=== PATIENT | female | born 1960 | race Caucasian/White ===

== ENCOUNTER 2017-05-15 09:23 | Emergency (ER) | payer OTHER ==
[~2017-05-15] VITALS: Ht 162.6 cm; Wt 80.0 kg
[~2017-05-15 09:23] MED LIST: ADLT ASA LOW81 MG PO; AUGMENTIN875TAB PO; BACLOFEN10 MG PO; CHANTIX1 MG OR; CHOLESTEROL MED PO; DEPO-MEDROL80 MG/ML IM; KETOROLAC60 MG/2 ML IJ; LEVAQUIN750 MG PO; LISINOP/HCTZ1 TAB PO; LOVASTATIN40 M1 PO; METOPROL TAR25 MG PO; METOPROL TAR50 MG PO; MUCINEX600 MG PO; MULTI VITAMN; NAPROSYN500 MG PO; PATANASE0.6 %; PERCOCET 5/321 COMBO PO; PLAVIX75 MG PO; PREDNISONE20 MG PO; PROTONIX40 MG PO; SOMA350 MG PO; TOPROL XL50 MG PO; TRAMADOL HCL50 MG PO; TYLENOL # 31 TA1 PO; ZOFRAN ODT4 MG PO
[2017-05-15] MEDS ORDERED: LISINOP/HCTZ1 TA1 PO (09:30)
[2017-05-15] MEDS ORDERED: SYNTHROID75 MCG PO (09:31)
[2017-05-15] MEDS ORDERED: PERCOCET 5/325M1 TAB PO (10:59)
[2017-05-15 11:03] VITALS: BP 150/87
== END 2017-05-15 11:15 | disposition home or self-care (01) | DRG 552 ==
LOC: ED 09:23
DX: S16.1XXA Strain of muscle, fascia and tendon at neck level, initial encounter (principal); S09.90XA Unspecified injury of head, initial encounter; K21.9 Gastro-esophageal reflux disease without esophagitis; E78.00 Pure hypercholesterolemia, unspecified; I10 Essential (primary) hypertension; G47.30 Sleep apnea, unspecified; V49.40XA Driver injured in collision with unspecified motor vehicles in traffic accident, initial encounter

== ENCOUNTER 2018-09-04 09:41 | Emergency (ER) | payer OTHER ==
[~2018-09-04] VITALS: Ht 162.6 cm; Wt 88.6 kg
[~2018-09-04 09:41] MED LIST changes: +LISINOP/HCTZ1 TA1 PO; +PERCOCET 5/325M1 TAB PO; +SYNTHROID75 MCG PO
[2018-09-04] MEDS ORDERED: MEDDOSEPAK PO (10:13)
[2018-09-04] MEDS ORDERED: TORADOL PO (10:13)
[2018-09-04 10:43] VITALS: BP 124/63
== END 2018-09-04 11:00 | disposition home or self-care (01) | DRG 93 ==
LOC: ED 09:41
DX: G89.29 Other chronic pain (principal); M54.5 Low back pain; I10 Essential (primary) hypertension

== ENCOUNTER 2019-03-31 16:51 | Emergency (ER) | payer OTHER ==
[~2019-03-31] VITALS: Ht 162.6 cm; Wt 70.0 kg
[~2019-03-31 16:51] MED LIST changes: +MEDDOSEPAK PO; +TORADOL PO
[2019-03-31 17:41] VITALS: BP 140/62
== END 2019-03-31 17:41 | disposition home or self-care (01) | DRG 605 ==
LOC: ED 16:51
DX: S61.213A Laceration without foreign body of left middle finger without damage to nail, initial encounter (principal); I10 Essential (primary) hypertension; W26.0XXA Contact with knife, initial encounter; Y93.G3 Activity, cooking and baking; Y92.000 Kitchen of unspecified non-institutional (private) residence as the place of occurrence of the external cause; Z79.01 Long term (current) use of anticoagulants; Z95.5 Presence of coronary angioplasty implant and graft

== ENCOUNTER 2019-11-12 09:20 | Observation (INO) | payer OTHER ==
[~2019-11-12] VITALS: Ht 162.6 cm; Wt 85.0 kg
[2019-11-12 09:53] LABS: IMMATURE GRANULOCYTES 0.5 % (0.0-5.0); MEAN CELL VOLUME 91.7 fL CALC (80.0-100.0); MEAN CORPUSCULAR HGB 32.1 pG CALC (26.0-32.0); NEUT# 4.07 thou/uL (2.00-7.15); RED BLOOD COUNT 4.36 mill/uL (4.20-5.60); RED CELL DISTRI WIDTH 12.7 % (11.5-15.5)
[2019-11-12 10:10] LABS: ALBUMIN 5.1 g/dL (3.2-5.0); ALKALINE PHOSPHATASE 92 u/l (38-126); BUN 19 mg/dL (7-17); BUN/CREATININE RATIO 25 (12-20 (CALC)); CARBON DIOXIDE 24 mmol/l (22-30); CREATININE 0.8 mg/dL (0.5-1.0); GFR > 60 ML/MIN (>=60 (CALC)); GFR FOR AFR.AMER. > 60 ML/MIN (>=60 (CALC)); LIPASE 196 u/l (23-300); SGOT/AST 40 u/l (14-36); TOTAL PROTEIN 8.3 g/dL (6.3-8.2)
[2019-11-12 10:20] LABS: ANION GAP 21 (6-22 (CALC)); BILIRUBIN, TOTAL 1.5 mg/dL (0.0-1.4); CHLORIDE 83 mmol/l (95-108); SODIUM 124 mmol/l (137-146)
[2019-11-12 11:38] LABS: URINE BILIRUBIN - DIPSTICK NEGATIVE (NEGATIVE); URINE BLOOD DIPSTICK NEGATIVE (NEGATIVE); URINE COLOR YELLOW; URINE GLUCOSE - DIPSTICK NEGATIVE (NEGATIVE); URINE KETONE NEGATIVE (NEGATIVE); URINE LEUK ESTERASE SMALL (NEGATIVE); URINE NITRITE - DIPSTICK NEGATIVE (Negative); URINE PROTEIN - DIPSTICK NEGATIVE (NEG-TRACE); URINE SPECIFIC GRAVITY <=1.005; URINE UROBILINOGEN - DIPSTICK 0.2 E.U./dL (0.2)
[2019-11-12 11:49] LABS: URINE SQUAMOUS EPITHELIAL CELL FEW EPI/hpf (0-FEW); URINE WBC 0-2 WBC/hpf (0-5)
[2019-11-12 13:23] VITALS: BP 146/76
[2019-11-12 16:00] VITALS: BP 119/60
[2019-11-12 19:10] VITALS: BP 121/71
[2019-11-12 20:37] LABS: ANION GAP 14 (6-22 (CALC)); BUN 14 mg/dL (7-17); BUN/CREATININE RATIO 19 (12-20 (CALC)); CARBON DIOXIDE 27 mmol/l (22-30); CHLORIDE 87 mmol/l (95-108); CREATININE 0.7 mg/dL (0.5-1.0); GFR > 60 ML/MIN (>=60 (CALC)); GFR FOR AFR.AMER. > 60 ML/MIN (>=60 (CALC)); POTASSIUM 3.2 mmol/l (3.5-5.1); SODIUM 124 mmol/l (137-146)
[2019-11-13 03:39] VITALS: BP 120/67
[2019-11-13 05:19] LABS: HEMATOCRIT 36.9 % (37.0-47.0); HEMOGLOBIN 12.7 g/dl (12.0-16.0); MEAN CELL VOLUME 95.1 fL CALC (80.0-100.0); MEAN CORPUSCULAR HGB 32.7 pG CALC (26.0-32.0); MEAN CORPUSCULAR HGB CONC 34.4 g/L CALC (32.0-36.0); RED BLOOD COUNT 3.88 mill/uL (4.20-5.60); RED CELL DISTRI WIDTH 12.9 % (11.5-15.5)
[2019-11-13 05:31] LABS: BUN 13 mg/dL (7-17); BUN/CREATININE RATIO 20 (12-20 (CALC)); CARBON DIOXIDE 29 mmol/l (22-30); CHLORIDE 94 mmol/l (95-108); CREATININE 0.7 mg/dL (0.5-1.0); GFR > 60 ML/MIN (>=60 (CALC)); GFR FOR AFR.AMER. > 60 ML/MIN (>=60 (CALC))
[2019-11-13 05:33] LABS: ANION GAP 13 (6-22 (CALC)); POTASSIUM 4.5 mmol/l (3.5-5.1); SODIUM 131 mmol/l (137-146)
[2019-11-13 08:07] VITALS: BP 147/87
[2019-11-13 09:24] LABS: TSH, 3RD GENERATION 5.05 uIU/mL (0.47 - 4.68)
[2019-11-13 10:40] VITALS: BP 152/90
[2019-11-13] MEDS ORDERED: AMBIEN5 MG PO (11:13)
[2019-11-13] MEDS ORDERED: LISINOPRIL20 MG PO (11:13)
== END 2019-11-13 13:35 | disposition home or self-care (01) | DRG 641 ==
LOC: ED 09:20 → ED-I 10:45 → ED 11:15 → MS2 11:16
PROVIDERS: Family Medicine; Nurse Practitioner Family; ADMIT Internal Medicine; ATTEND Internal Medicine
DX: E87.1 Hypo-osmolality and hyponatremia (principal); I49.3 Ventricular premature depolarization; I10 Essential (primary) hypertension; I25.10 Atherosclerotic heart disease of native coronary artery without angina pectoris; E78.5 Hyperlipidemia, unspecified; E03.9 Hypothyroidism, unspecified; Z87.891 Personal history of nicotine dependence; Z95.5 Presence of coronary angioplasty implant and graft
CPT/HCPCS: G0378

== ENCOUNTER 2020-08-08 07:22 | Emergency (ER) | payer OTHER ==
[~2020-08-08] VITALS: Ht 162.6 cm; Wt 86.8 kg
[~2020-08-08 07:22] MED LIST changes: +AMBIEN5 MG PO; +LISINOPRIL20 MG PO
[2020-08-08] MEDS ORDERED: NALTREXONE HYDR50 MG PO (08:17)
[2020-08-08] MEDS ORDERED: BUPROPION HYDRO75 MG PO (08:18)
[2020-08-08] MEDS ORDERED: VIGAMOX OS (08:39)
[2020-08-08 09:00] VITALS: BP 146/71
== END 2020-08-08 09:00 | disposition home or self-care (01) | DRG 125 ==
LOC: ED 07:22
DX: S05.01XA Injury of conjunctiva and corneal abrasion without foreign body, right eye, initial encounter (principal); I10 Essential (primary) hypertension; X58.XXXA Exposure to other specified factors, initial encounter; Z95.5 Presence of coronary angioplasty implant and graft; Z79.899 Other long term (current) drug therapy

== ENCOUNTER 2021-02-11 | Emergency (ER) | payer OTHER ==
[~2021-02-11] MED LIST changes: +BUPROPION HYDRO75 MG PO; +NALTREXONE HYDR50 MG PO; +VIGAMOX OS
[2021-02-11 14:52] LABS: HEMOGLOBIN 12.7 g/dl (12.0-16.0); IMMATURE GRANULOCYTES 0.5 % (0.0-5.0); MEAN CELL VOLUME 96.3 fL CALC (80.0-100.0); MEAN CORPUSCULAR HGB 31.4 pG CALC (26.0-32.0); MEAN CORPUSCULAR HGB CONC 32.6 g/dL CAL (32.0-36.0); NEUT# 3.87 thou/uL (2.00-7.15); RED BLOOD COUNT 4.05 mill/uL (4.20-5.60); RED CELL DISTRI WIDTH 13.7 % (11.5-15.5)
[2021-02-11 15:07] LABS: ALBUMIN 4.3 g/dL (3.2-5.0); ALKALINE PHOSPHATASE 96 u/l (38-126); ANION GAP 12 (6-22 (CALC)); BILIRUBIN, TOTAL 0.7 mg/dL (0.0-1.4); BUN 11 mg/dL (7-17); BUN/CREATININE RATIO 15 (12-20 (CALC)); CARBON DIOXIDE 26 mmol/l (22-30); CHLORIDE 103 mmol/l (95-108); CREATININE 0.7 mg/dL (0.5-1.0); GFR > 60 ML/MIN (>=60 (CALC)); GFR FOR AFR.AMER. > 60 ML/MIN (>=60 (CALC)); SGOT/AST 53 u/l (14-36); SODIUM 136 mmol/l (137-146)
[2021-02-11 15:09] LABS: POTASSIUM 4.7 mmol/l (3.5-5.1)
[2021-02-11] MEDS ORDERED: TRAMADOL HYDROC50 MG PO (15:57)
[2021-02-14] MEDS ORDERED: ULTRAM50 M1 PO (09:39)
== END 2021-02-11 16:20 | disposition home or self-care (01) | DRG 563 ==
DX: S46.912A Strain of unspecified muscle, fascia and tendon at shoulder and upper arm level, left arm, initial encounter (principal); I10 Essential (primary) hypertension; Z95.5 Presence of coronary angioplasty implant and graft; Y04.0XXA Assault by unarmed brawl or fight, initial encounter

== ENCOUNTER 2023-03-19 08:56 | Observation (INO) | payer OTHER ==
[~2023-03-19] VITALS: Ht 162.6 cm; Wt 79.4 kg
[2023-03-19] VITALS (16 sets, daily range): BP systolic 106–150; BP diastolic 53–109
[~2023-03-19 08:56] MED LIST changes: +TRAMADOL HYDROC50 MG PO; +ULTRAM50 M1 PO
[2023-03-19 09:23] LABS: BASO% 0.6 % (0-3); EOS% 1.4 % (0-8); HEMATOCRIT 46.2 % (37.0-47.0); HEMOGLOBIN 15.2 g/dl (12.0-16.0); IMMATURE GRANULOCYTES 0.2 % (0.0-5.0); LYMPH% 28.7 % (15-41); MEAN CELL VOLUME 91.8 fL CALC (80.0-100.0); MEAN CORPUSCULAR HGB 30.2 pG CALC (26.0-32.0); MEAN CORPUSCULAR HGB CONC 32.9 g/dL CAL (32.0-36.0); MONO% 7.8 % (2-13); NEUT# 5.32 thou/uL (2.00-7.15); NEUT% 61.3 % (42-76); RED BLOOD COUNT 5.03 mill/uL (4.20-5.60); RED CELL DISTRI WIDTH 13.1 % (11.5-15.5)
[2023-03-19 09:42] LABS: ALBUMIN 5.1 g/dL (3.2-5.0); ALKALINE PHOSPHATASE 84 u/l (38-126); ANION GAP 14 (6-22 (CALC)); BILIRUBIN, TOTAL 0.6 mg/dL (0.02-1.3); BUN 10 mg/dL (8-23); BUN/CREATININE RATIO 10 (12-20 (CALC)); CARBON DIOXIDE 27 mmol/l (22-30); CHLORIDE 102 mmol/l (95-108); GFR FOR AFR.AMER. > 60 ML/MIN (>=60 (CALC)); GFR OTHER RACES 56 ML/MIN (>=60 (CALC)); POTASSIUM 4.4 mmol/l (3.5-5.1); SGOT/AST 35 u/l (9-36); SODIUM 139 mmol/l (137-146); TOTAL PROTEIN 8.2 g/dL (6.3-8.2)
[2023-03-19 10:12] LABS: TSH, 3RD GENERATION 1.85 uIU/mL (0.47 - 4.68)
[2023-03-19] MEDS ORDERED: LEVOTHYROXIN88 MC1 PO (11:01)
[2023-03-19] MEDS ORDERED: VITAMIN D H1000 UNIT PO (11:02)
[2023-03-19] MEDS ORDERED: PROTONIX40 M2 PO (11:03)
[2023-03-19] MEDS ORDERED: CHANTIX PO (11:03)
[2023-03-19] MEDS ORDERED: FARXIGA10 MG (11:04)
[2023-03-19] MEDS ORDERED: CRESTOR40 MG PO (11:04)
[2023-03-19] MEDS ORDERED: GABAPENTIN300 M2 (11:05)
[2023-03-19] MEDS ORDERED: OXYCODO-APAP1 TA2 PO (11:06)
[2023-03-19] MEDS ORDERED: DETROL2 MG PO (11:07)
[2023-03-19] MEDS ORDERED: OZEMPIC2 MG/1.5 M (11:09)
[2023-03-19] MEDS ORDERED: FUROSEMIDE20 MG PO (12:39)
[2023-03-19] MEDS ORDERED: METOPROLOL TART50 MG PO (16:16)
[2023-03-20 00:10] VITALS: BP 88/52
[2023-03-20 01:48] LABS: BASO% 0.4 % (0-3); EOS% 1.4 % (0-8); HEMATOCRIT 42.1 % (37.0-47.0); IMMATURE GRANULOCYTES 0.9 % (0.0-5.0); LYMPH% 33.8 % (15-41); MEAN CELL VOLUME 90.1 fL CALC (80.0-100.0); MEAN CORPUSCULAR HGB CONC 33.3 g/dL CAL (32.0-36.0); MONO% 6.8 % (2-13); NEUT# 4.39 thou/uL (2.00-7.15); NEUT% 56.7 % (42-76); RED BLOOD COUNT 4.67 mill/uL (4.20-5.60); RED CELL DISTRI WIDTH 13.2 % (11.5-15.5)
[2023-03-20 01:58] LABS: ALBUMIN 4.8 g/dL (3.2-5.0); ALKALINE PHOSPHATASE 70 u/l (38-126); ANION GAP 16 (6-22 (CALC)); BILIRUBIN, TOTAL 0.8 mg/dL (0.02-1.3); BUN 13 mg/dL (8-23); BUN/CREATININE RATIO 16 (12-20 (CALC)); CALCULATED LDLCHOLESTEROL 25 mg/dL (62-129 (CALC)); CARBON DIOXIDE 25 mmol/l (22-30); CHLORIDE 99 mmol/l (95-108); CHOLESTEROL HDL RATIO 3.2 (<4.4 (CALC)); CREATININE 0.8 mg/dL (0.5-1.0); GFR FOR AFR.AMER. > 60 ML/MIN (>=60 (CALC)); GFR OTHER RACES > 60 ML/MIN (>=60 (CALC)); HDL CHOLESTEROL 42 mg/dL (39.0-59.0); MAGNESIUM 1.8 mg/dL (1.6-2.3); SGOT/AST 34 u/l (9-36); SODIUM 137 mmol/l (137-146); TOTAL CHOLESTEROL 135 mg/dl (0-199); TOTAL PROTEIN 7.3 g/dL (6.3-8.2); TOTAL TRIGLYCERIDES 342 mg/dl (0-149); VLDL CHOLESTROL 68 mg/dl (1-41 (CALC))
[2023-03-20 02:01] LABS: POTASSIUM 3.4 mmol/l (3.5-5.1)
[2023-03-20 06:57] VITALS: BP 113/63
[2023-03-20 07:33] VITALS: BP 114/68
[2023-03-20] MEDS ORDERED: FLECAINIDE50 MG PO (10:40)
[2023-03-20 12:08] VITALS: BP 105/65
== END 2023-03-20 13:32 | disposition home or self-care (01) | DRG 309 ==
LOC: ED 08:56 → ED-I 09:49 → ED 11:05 → MS2 11:06
PROVIDERS: Family Medicine; ADMIT Internal Medicine; ATTEND Internal Medicine
DX: I47.1 Supraventricular tachycardia (principal); E22.2 Syndrome of inappropriate secretion of antidiuretic hormone; I10 Essential (primary) hypertension; E11.9 Type 2 diabetes mellitus without complications; I25.10 Atherosclerotic heart disease of native coronary artery without angina pectoris; E78.5 Hyperlipidemia, unspecified; E03.9 Hypothyroidism, unspecified; Z95.5 Presence of coronary angioplasty implant and graft; Z87.891 Personal history of nicotine dependence
CPT/HCPCS: G0378; J1650